=== PATIENT | male | born 1990 | race Caucasian/White ===

== ENCOUNTER 2017-10-02 23:57 | Emergency (ER) | payer OTHER ==
[2017-10-03 00:03] VITALS: BP 111/66; PULSE 84; TEMP 97.8; BMI 18.1
--- NOTE | 2017-10-03 00:18 | PDOC ---
History of Present Illness - General History Source: Patient Exam Limitations: No Limitations - History of Present Illness Initial Comments: 10/03/17 00:50 The patient is a 27 year old male with no significant PMH who presents to the emergency department with chest pain since earlier this evening. The patient reports that he was seen earlier today at [facility] by which he was diagnosed with asthma and given medication. The patient reports that after being discharged home he began to develop some chest pain, bringing him into the ED today. The patient notes that he does get short of breath when there's dust or pollen around . the patient denies any pertinent family history. He denies any smoking, drug use, alcohol intake or recent travel. The patient denies any other symptoms. He denies fever, chills, nausea, vomit, diarrhea,constipation or urinary symptoms. He denies headache and dizziness. The patient denies any other complaints. <Sanju Licea - Last Filed: 10/03/17 00:51> - General History Source: Patient <Harry Goode - Last Filed: 10/03/17 02:03> - General Chief Complaint: Chest Pain Stated Complaint: CHEST PAIN Time Seen by Provider: 10/03/17 00:14 Past History <Sanju Licea - Last Filed: 10/03/17 00:51> - Past Medical History COPD: No - Surgical History Appendectomy: Yes - Suicide/Smoking/Psychosocial Hx Smoking History: Never smoked Hx Alcohol Use: No Drug/Substance Use Hx: No <Harry Goode - Last Filed: 10/03/17 02:03> - Past Medical History Allergies/Adverse Reactions: Allergies Allergy/AdvReac Type Severity Reaction Status Date / Time No Known Allergies Allergy Verified 10/03/17 00:02 Review of Systems - Review of Systems Able to Perform ROS?: Yes Comments:: 10/03/17 00:50 CONSTITUTIONAL: Absent: fever, chills, diaphoresis, generalized weakness, malaise, loss of appetite HEENT: Absent: rhinorrhea, nasal congestion, throat pain, throat swelling, difficulty swallowing, mouth swelling, ear pain, eye pain, visual Changes CARDIOVASCULAR: (+)chest pain Absent: syncope, palpitations, irregular heart rate, lightheadedness, peripheral edema RESPIRATORY: Absent: cough, shortness of breath, dyspnea with exertion, orthopnea, wheezing, stridor, hemoptysis GASTROINTESTINAL: Absent: abdominal pain, abdominal distension, nausea, vomiting, diarrhea, constipation, melena, hematochezia GENITOURINARY: Absent: dysuria, frequency, urgency, hesitancy, hematuria, flank pain, genital pain MUSCULOSKELETAL: Absent: myalgia, arthralgia, joint swelling SKIN: Absent: rash, itching, pallor HEMATOLOGIC/IMMUNOLOGIC: Absent: easy bleeding, easy bruising, lymphadenopathy, frequent infections ENDOCRINE: Absent: unexplained weight gain, unexplained weight loss, heat intolerance, cold intolerance NEUROLOGIC: Absent: headache, focal weakness or paresthesias, dizziness, unsteady gait, seizure, mental status changes, bladder or bowel incontinence PSYCHIATRIC: Absent: anxiety, depression, suicidal or homicidal ideation, hallucinations. <Sanju Licea - Last Filed: 10/03/17 00:51> *Physical Exam - Vital Signs Last Vital Signs Temp Pulse Resp BP Pulse Ox 97.8 F 84 22 111/66 100 10/03/17 00:00 10/03/17 00:00 10/03/17 00:00 10/03/17 00:00 10/03/17 00:00 - Physical Exam Comments: 10/03/17 00:50 GENERAL: (+)appears anxious Well developed, well nourished. Awake and alert. No acute distress. HEENT: Normocephalic, atraumatic. PERRLA, EOMI. No conjunctival pallor. Sclera are non- icteric. Moist mucous membranes. Oropharynx is clear. NECK: Supple. Full ROM. No JVD. Carotid pulses 2+ and symmetric, without bruits. No thyromegaly. No lymphadenopathy. CARDIOVASCULAR: Regular rate and rhythm. No murmurs, rubs, or gallops. Distal pulses are 2+ and symmetric. PULMONARY: No evidence of respiratory distress. Lungs clear to auscultation bilaterally, non tachy. No wheezing, rales or rhonchi. ABDOMINAL: Soft. Non-tender. Non-distended. No rebound or guarding. No organomegaly. Normoactive bowel sounds. MUSCULOSKELETAL Normal range of motion at all joints. No bony deformities or tenderness. No CVA tenderness. EXTREMITIES: No cyanosis. No clubbing. No edema. No calf tenderness. SKIN: Warm and dry. Normal capillary refill. No rashes. No jaundice. NEUROLOGICAL: Alert, awake, appropriate. Cranial nerves 2-12 intact. No deficits to light touch and temperature in face, upper extremities and lower extremities. No motor deficits in the in face, upper extremities and lower extremities. Normoreflexic in the upper and lower extremities. Normal speech. Toes are down- going bilaterally. Gait is normal without ataxia. PSYCHIATRIC: Cooperative. Good eye contact. Appropriate mood and affect. <Sanju Licea - Last Filed: 10/03/17 00:51> - Vital Signs Last Vital Signs Temp Pulse Resp BP Pulse Ox 97.8 F 84 22 111/66 100 10/03/17 00:00 10/03/17 00:00 10/03/17 00:00 10/03/17 00:00 10/03/17 00:00 <Harry Goode - Last Filed: 10/03/17 02:03> Heart Score/ECG Review - ECG Intrepretation Comment:: 10/03/17 00:51 Vent Rate:75 bpm NE interval:148 ms QRS duration:98 ms QT/QTc:364/406 ms Normal sinus rhythm Incomplete right bundle branch Borderline ECG Documentation prepared by Sanju Licea, acting as medical receptionist assistant for Harry Goode DO. <Sanju Licea - Last Filed: 10/03/17 00:51> ED Treatment Course - LABORATORY CBC & Chemistry Diagram: 10/03/17 00:26 10/03/17 00:45 <Harry Goode - Last Filed: 10/03/17 02:03> *DC/Admit/Observation/Transfer - Attestations Scribe Attestion: 10/03/17 00:50 Documentation prepared by Sanju Licea, acting as medical receptionist assistant for Harry Goode DO. <Sanju Licea - Last Filed: 10/03/17 00:51> - Discharge Dispostion Decision to Admit order: No <Harry Goode - Last Filed: 10/03/17 02:03> Diagnosis at time of Disposition: Chest pain Qualifiers: Chest pain type: unspecified Qualified Code(s): R07.9 - Chest pain, unspecified - Discharge Dispostion Disposition: HOME Condition at time of disposition: Stable - Referrals Referrals: Laurence Gray [Primary Care Provider] - Brian Martinez MD [Staff Physician] - - Patient Instructions Printed Discharge Instructions: DI for Chest Pain Additional Instructions: Please follow up with your doctor or the doctor referred to you here in the ER if symptoms don't improve.
[2017-10-03 01:02] LABS: BASO % 0.1 % (0-2.0); EOS % 0.1 % (0-4.5); HEMATOCRIT 43.6 % (35.4-49); HEMOGLOBIN 14.7 GM/dL (11.7-16.9); MCH 32.2 pg (25.7-33.7); MCHC 33.7 g/dl (32.0-35.9); MEAN CELL VOLUME 95.6 fl (80-96); MEAN PLT VOLUME 8.4 fl (7.5-11.1); MONO % 0.6 % (3.8-10.2); NEUT % 93.2 % (42.8-82.8); PLATELET COUNT 219 K/MM3 (134-434); RBC 4.56 M/mm3 (4.00-5.60); WHITE BLOOD COUNT 11.4 K/mm3 (4.0-10.0)
[2017-10-03 01:44] LABS: ALBUMIN 4.5 g/dl (3.4-5.0); ANION GAP 10 (8-16); BILIRUBIN,TOTAL 0.9 mg/dL (0.2-1.0); BLOOD UREA NITROGEN 14 mg/dL (7-18); CALCIUM 9.3 mg/dL (8.5-10.1); CHLORIDE 105 mmol/L (98-107); CO2 24 mmol/L (21-32); CREATININE 1.1 mg/dL (0.7-1.3); GLUCOSE,RANDOM 137 mg/dL (74-106); POTASSIUM 4.3 mmol/L (3.5-5.1); SGOT/AST 20 U/L (15-37); SGPT/ALT 25 U/L (12-78); SODIUM 139 mmol/L (136-145); TOT PROT 7.4 g/dl (6.4-8.2)
[2017-10-03 01:46] LABS: ALK PHOS 74 U/L (45-117)
[2017-10-03 02:11] LABS: PLATELET ESTIMATE ADEQUATE
--- NOTE | 2017-10-04 14:14 | EKG ---
Test Reason : Blood Pressure : / mmHG Vent. Rate : 075 BPM Atrial Rate : 075 BPM P-R Int : 148 ms QRS Dur : 098 ms QT Int : 364 ms P-R-T Axes : 077 -20 056 degrees QTc Int : 406 ms NORMAL SINUS RHYTHM INCOMPLETE RIGHT BUNDLE BRANCH BLOCK BORDERLINE ECG NO PREVIOUS ECGS AVAILABLE Confirmed by VINCENT MORA MD ([id number]) on 10/04/2017 2:13:54 PM Referred By: Confirmed By:VINCENT MORA MD
== END 2017-10-03 02:00 | disposition home or self-care (01) ==
LOC: JER 23:57
DX: R07.9 Chest pain, unspecified (principal)
CPT/HCPCS: 36415; 80053; 82550; 83735; 84484; 85025; 93005; 93010; 99282-25

== ENCOUNTER 2018-01-18 10:35 | Emergency (ER) | payer OTHER ==
[2018-01-18 10:44] VITALS: BP 116/54; PULSE 73; TEMP 97.9; BMI 18.8
--- NOTE | 2018-01-18 12:02 | PDOC ---
History of Present Illness - General Chief Complaint: Wound Stated Complaint: OPEND WOUND/RECTAL BLEEDING Time Seen by Provider: 01/18/18 11:34 History Source: Patient Exam Limitations: No Limitations - History of Present Illness Initial Comments: 01/18/18 12:02 27y M hx of perianal abcess presents with rectal bleeding x 2 days. Pt notes when he has a BM, he notice a few drops of blood in the toilet bowl and on the toilet paper that resolves after wiping 2 or 3 times. the stool itself is brown , Pt notes he was straining alittle bit 2-3 days ago, and sometimes is constipated, but not always. He does not some pain when he has a BM. Pt denies any fever/chills, abd pain. Pt was wondering if his wound openned up from his I &D from several months ago. denies cp, sob, back pain, dizziness/lightheadedness/palpitations. Pt without history of bleeding notes he sometimes has hemorroids when wiping Past History - Past Medical History Allergies/Adverse Reactions: Allergies Allergy/AdvReac Type Severity Reaction Status Date / Time No Known Allergies Allergy Verified 10/06/17 20:06 Home Medications: Ambulatory Orders NK [No Known Home Medication] 01/18/18 Anemia: No Asthma: Yes Cancer: No Cardiac Disorders: No CVA: No COPD: No CHF: No Dementia: No Diabetes: No GI Disorders: No Disorders: No HTN: No Hypercholesterolemia: No Liver Disease: No Seizures: No Thyroid Disease: No Other medical history: james anal abscess - Surgical History Abdominal Surgery: No Appendectomy: Yes Cardiac Surgery: No Cholecystectomy: No Lung Surgery: No Neurologic Surgery: No Orthopedic Surgery: No - Suicide/Smoking/Psychosocial Hx Smoking History: Never smoked Have you smoked in the past 12 months: No Hx Alcohol Use: No Drug/Substance Use Hx: No Substance Use Type: None Hx Substance Use Treatment: No Review of Systems - Review of Systems Able to Perform ROS?: Yes Comments:: 01/18/18 12:05 Constitutional - no reported Fever, Chills, Cardiac: no reported chest pain, palpitations, light headedness, Abd/GI: +rectal bleeding no reported abd pain, nausea, vomiting, melena, diarrhea : no reported dysuria, frequency, discharge Musculskelatal - no reported back pain, joint swelling skin - no reported bruising, erythema, rash neurological: no reported headache, numbness, focal weakness, tingling, ataxia, hematologic: no reported easy bruising, easy bleeding *Physical Exam - Vital Signs Last Vital Signs Temp Pulse Resp BP Pulse Ox 97.9 F 73 14 116/54 L 100 01/18/18 10:41 01/18/18 10:41 01/18/18 10:41 01/18/18 10:41 01/18/18 10:41 - Physical Exam Comments: 01/18/18 12:05 GENERAL: The patient is awake, alert, and fully oriented, Nontoxic - in no acute distress. HEAD: Normocephalic, atraumatic. EYES: extraocular movements intact, sclera anicteric, conjunctiva clear. ENT: Normal voice, Moist mucous membranes. NECK: Normal range of motion, supple LUNGS: Breath sounds equal, clear to auscultation bilaterally. No wheezes, no rhonchi, no rales. HEART: Regular rate and rhythm, normal S1 and S2 without murmur, rub or gallop. ABDOMEN: Soft, nontender, normoactive bowel sounds. No guarding, no rebound. No CVA tenderness RECTAL: no rectal bleeding, no fissures, +very small external hemorroid/skin tag without evidence of thrombosis EXTREMITIES: Normal range of motion, NEUROLOGICAL: No facial assymetry, Normal speech, normal gait PSYCH: Normal mood, normal affect. SKIN: Warm, Dry, normal turgor, Medical Decision Making - Medical Decision Making 01/18/18 12:09 +external hemorroids suspect hemorroidal bleeding no signs of fissures no active bleeding currently no melena will dc with surgery fu as outpatient recommend higher fiber intake/hydration to minimize constipation I discussed the physical exam findings, ancillary test results and final diagnoses with the patient. I answered all of the patient's questions. The patient was satisfied with the care received and felt comfortable with the discharge plan and treatment plan. The patient will call their primary care physician within 24 hours to arrange follow-up and will return to the Emergency Department with any new, persistent or worsening symptoms. *DC/Admit/Observation/Transfer Diagnosis at time of Disposition: Bleeding hemorrhoid - Discharge Dispostion Disposition: HOME Condition at time of disposition: Improved Decision to Admit order: No - Referrals Referrals: Laurence Gray [Primary Care Provider] - Dev Quintanilla MD [Staff Physician] - - Patient Instructions Printed Discharge Instructions: DI for Rectal Bleeding Additional Instructions: Return to the emergency department immediately with ANY new, persistent or worsening symptoms including worsening pain, persistent bleeding or other concerns. Please increase your water intake, increasing physical activity and increase her fiber intake You MUST call and follow up with Dr. Quintanilla for further evaluation of your symptoms. Your emergency department visit is not complete without a followup with your doctor for reevaluation. Results were discussed with you. Please make sure your doctor reviews the results of your emergency evaluation. Print Language: MAORI - Post Discharge Activity
== END 2018-01-18 12:14 | disposition home or self-care (01) ==
LOC: JER 10:35
DX: K64.4 Residual hemorrhoidal skin tags (principal)
CPT/HCPCS: 99281-25

== ENCOUNTER 2018-09-01 18:29 | Emergency (ER) | payer OTHER ==
[2018-09-01 18:37] VITALS: BP 109/63; PULSE 84; TEMP 98.7; BMI 16.7
--- NOTE | 2018-09-01 18:37 | PDOC ---
Rapid Medical Evaluation Time Seen by Provider: 09/01/18 18:32 Medical Evaluation: Allergies Allergy/AdvReac Type Severity Reaction Status Date / Time No Known Allergies Allergy Verified 10/06/17 20:06 09/01/18 18:32 I have performed a brief in-person evaluation of this patient. The patient presents with a chief complaint of: left jaw pain Pertinent physical exam findings: tender to left TMJ with articulation of mandible I have ordered the following: nothing The patient will proceed to the ED for further evaluation. Discharge Disposition - Diagnosis Jaw pain - Referrals - Patient Instructions - Post Discharge Activity
--- NOTE | 2018-09-01 19:20 | PDOC ---
History of Present Illness - General Chief Complaint: Pain, Acute Stated Complaint: FACE PAIN Time Seen by Provider: 09/01/18 18:32 - History of Present Illness Initial Comments: 09/01/18 19:15 28 y/o M with L sided jaw pain x 1 week no fevers has a dental appointment tomorrow Past History - Past Medical History Allergies/Adverse Reactions: Allergies Allergy/AdvReac Type Severity Reaction Status Date / Time No Known Allergies Allergy Verified 10/06/17 20:06 Home Medications: Ambulatory Orders Amoxicillin - [Amoxicillin 500mg Capsule -] 500 mg PO BID #14 capsule 09/01/18 Ibuprofen [Motrin -] 600 mg PO TID #30 tablet 09/01/18 Anemia: No Asthma: Yes Cancer: No Cardiac Disorders: No CVA: No COPD: No CHF: No Dementia: No Diabetes: No GI Disorders: No Disorders: No HTN: No Hypercholesterolemia: No Liver Disease: No Seizures: No Thyroid Disease: No - Surgical History Abdominal Surgery: No Appendectomy: Yes Cardiac Surgery: No Cholecystectomy: No Lung Surgery: No Neurologic Surgery: No Orthopedic Surgery: No - Immunization History Immunization Up to Date: Yes - Suicide/Smoking/Psychosocial Hx Smoking History: Never smoked Have you smoked in the past 12 months: No Hx Alcohol Use: No Drug/Substance Use Hx: Yes Substance Use Type: None Hx Substance Use Treatment: No Review of Systems - Review of Systems Musculoskeletal: Yes: Joint Pain *Physical Exam - Vital Signs Last Vital Signs Temp Pulse Resp BP Pulse Ox 98.7 F 84 18 109/63 100 09/01/18 18:32 09/01/18 18:32 09/01/18 18:32 09/01/18 18:32 09/01/18 18:32 - Physical Exam Comments: 09/01/18 19:16 HEAD: NC/AT EYES: Conjuntiva clear Ears: Canals and TM's normal NOSE: No d/c THROAT: Moist mucous membrances, oral pharanx clear, uvula midline NECK: Supple without adenopathy MOUTH: No areas of erythema dental decay or fluctuance; Tender L TMJ MS: Full ROM in all joints without edema NEUROLOGIC: No gross sensory or motor deficits, NVID SKIN: Normal color and temperature no lesions or rashes Medical Decision Making - Medical Decision Making 09/01/18 19:17 most likely TMJ, On ABX now self medication with fathers ABX, will start on AMox will start a course of Motrin and ENT F/U 09/01/18 19:19 *DC/Admit/Observation/Transfer Diagnosis at time of Disposition: Jaw pain, TMJ capsulitis - Discharge Dispostion Disposition: HOME Condition at time of disposition: Stable Decision to Admit order: No - Prescriptions Prescriptions: Ibuprofen [Motrin -] 600 mg PO TID #30 tablet - Referrals Referrals: Laurence Gray [Primary Care Provider] - Jori Khan MD [Staff Physician] - - Patient Instructions Printed Discharge Instructions: Temporomandibular Disorder, DI for Temporomandibular Disorder Additional Instructions: Return to the ER if symptoms worsen. follow up with dentist tomorrow as scheduled and ENT in 1-2 days without fail - Post Discharge Activity
== END 2018-09-01 19:44 | disposition home or self-care (01) ==
LOC: JERFT 18:29
DX: M26.69 Other specified disorders of temporomandibular joint (principal)
CPT/HCPCS: 99281-25

== ENCOUNTER 2019-11-17 20:39 | Emergency (ER) | payer OTHER ==
--- NOTE | 2019-11-17 21:09 | PDOC ---
Rapid Medical Evaluation Chief Complaint: Sore Throat Time Seen by Provider: 11/17/19 21:08 Medical Evaluation: Allergies Allergy/AdvReac Type Severity Reaction Status Date / Time No Known Allergies Allergy Verified 10/06/17 20:06 11/17/19 21:08 I have performed a brief in-person evaluation of this patient. The patient presents with a chief complaint of: BIBA with sore throat x 2 days with tactile fever with ABBIN Pertinent physical exam findings: Afebrile, mild pharyngeal erythema w/o exudates I have ordered the following:rapid strep The patient will proceed to the ED for further evaluation. Discharge Disposition - Diagnosis Sore throat - Discharge Dispostion Condition at time of disposition: Stable - Referrals - Patient Instructions - Post Discharge Activity
[2019-11-17 21:16] VITALS: BP 113/66; PULSE 92; TEMP 99; BMI 20.6
[2019-11-17] MEDS ORDERED: ACETAMINOPHEN 500 MG TABLET (FP) PO ONE (21:55)
--- NOTE | 2019-11-17 22:13 | PDOC ---
History of Present Illness - General Chief Complaint: Sore Throat Stated Complaint: SORE THROAT Time Seen by Provider: 11/17/19 21:08 - History of Present Illness Initial Comments: 11/17/19 22:11 29-year-old male without comorbidities presents for evaluation of chills and body aches low-grade fever x2 days mild sore throat Past History - Medical History Allergies/Adverse Reactions: Allergies Allergy/AdvReac Type Severity Reaction Status Date / Time No Known Allergies Allergy Verified 10/06/17 20:06 Home Medications: Ambulatory Orders Amoxicillin - [Amoxicillin 500mg Capsule -] 500 mg PO BID #14 capsule 09/01/18 Ibuprofen [Motrin -] 600 mg PO TID #30 tablet 09/01/18 Anemia: No Asthma: Yes Cancer: No Cardiac Disorders: No CVA: No COPD: No CHF: No Dementia: No Diabetes: No GI Disorders: No Disorders: No HTN: No Hypercholesterolemia: No Liver Disease: No Seizures: No Thyroid Disease: No - Surgical History Abdominal Surgery: No Appendectomy: Yes Cardiac Surgery: No Cholecystectomy: No Lung Surgery: No Neurologic Surgery: No Orthopedic Surgery: No - Immunization History Immunization Up to Date: Yes - Psycho-Social/Smoking History Smoking History: Never smoked Have you smoked in the past 12 months: No Review of Systems - Review of Systems Constitutional: Yes: Chills, Fever, Malaise, Night Sweats HEENTM: Yes: Throat Pain Respiratory: Yes: Cough *Physical Exam - Vital Signs Last Vital Signs Temp Pulse Resp BP Pulse Ox 99 F 92 H 20 113/66 100 11/17/19 21:10 11/17/19 21:10 11/17/19 21:10 11/17/19 21:10 11/17/19 21:10 - Physical Exam General Appearance: Yes: Nourished, Appropriately Dressed. No: Apparent Distress HEENT: positive: Normal ENT Inspection, Normal Voice, Symmetrical Neck: positive: Supple. negative: Rigid Respiratory/Chest: positive: Normal Breath Sounds. negative: Respiratory Distress Musculoskeletal: positive: Normal Inspection Extremity: positive: Normal Inspection Integumentary: positive: Normal Color Neurologic: positive: audio/video engineer II-XII NML intact, Fully Oriented ED Treatment Course - RADIOLOGY Radiology Studies Ordered: Category Date Time Status CHEST PA & LAT [RAD] Stat Radiology 11/17/19 21:42 Taken Medical Decision Making - Medical Decision Making 11/17/19 22:12 Strep negative viral syndrome COVID swab sent. Tylenol and Motrin for fever and body aches as directed. Isolation for now I have reviewed the pathophysiology with the patient. They are in agreement with the treatment plan all questions were answered to their satisfaction. Understanding for follow-up without fail was also conveyed to the patient. Again they are in agreement. Discharge - Discharge Information Problems reviewed: Yes Clinical Impression/Diagnosis: Sore throat, Viral syndrome Condition: Stable Disposition: HOME - Admission No - Follow up/Referral Referrals: Laurence Gray [Primary Care Provider] - - Patient Discharge Instructions Additional Instructions: Isolate yourself for now. Your Cobra test is pending and should be back in 48 to 72 hours. Return to the emergency room for worsening symptoms. Tylenol and Motrin for fever and body aches as directed. Return to the emergency room for worsening symptoms and without fail follow-up with your primary care physician in 48 to 72 hours. Isolate until the test results are back and you were given further instructions. Your chest x-ray is clear today. - Post Discharge Activity
[2019-11-17] MEDS ORDERED: ACETAMINOPHEN 325 MG TABLET (FP) ONE (23:44)
== END 2019-11-17 23:49 | disposition home or self-care (01) ==
LOC: JERFT 20:39
DX: J02.9 Acute pharyngitis, unspecified (principal)
CPT/HCPCS: 71046-TC-FY; 87070; 87880; 99284-25